=== PATIENT | male | born 1995 | race Caucasian/White ===

== ENCOUNTER 2020-12-10 14:08 | Emergency (ER) | payer OTHER ==
[~2020-12-10] VITALS: Ht 182.9 cm; Wt 98.9 kg
[2020-12-10 14:26] VITALS: Ht 182.9 cm; Wt 98.9 kg
[2020-12-10] MEDS ORDERED: MOT800 PO (16:43)
[2020-12-10 17:08] VITALS: BP 121/76
== END 2020-12-10 17:08 | disposition home or self-care (01) ==
LOC: ED 14:08
DX: S46.912A Strain of unspecified muscle, fascia and tendon at shoulder and upper arm level, left arm, initial encounter (principal); V49.49XA Driver injured in collision with other motor vehicles in traffic accident, initial encounter; Y93.I9 Activity, other involving external motion; Y92.488 Other paved roadways as the place of occurrence of the external cause; Y99.8 Other external cause status